=== PATIENT | male | born 1975 | race Caucasian/White ===

== ENCOUNTER → 2018-02-13 | Outpatient (CLI) | payer MEDICAID ==
[~2018-02-13] VITALS: Ht 172.7 cm; Wt 122.5 kg
[~2018-02-13] MED LIST: ALLO100T MT; CARV25TA47 MT; FURO40TA5 MT; POTA-79 MT; SACU1TAB4 MT; SIMV20TA6 MT; SPIR25TA6 MT
[2018-02-13 14:17] LABS: HEMOGLOBIN 15.6 g/dL (14.0-18.0); MEAN CORPUSCULAR HEMOGLOBIN 29.7 pg (28.0-32.0); MEAN CORPUSCULAR VOLUME 83.9 fL (80.0-94.0); PLATELET 252 x1000/uL (130-400); RED BLOOD CELL COUNT 5.25 mill/uL (4.7-6.1); RED CELL DISTRIBUTION WIDTH 13.4 % (11.6-14.6)
[2018-02-13 14:34] LABS: CHLORIDE 102 mEq/L (98-107)
== END | disposition home or self-care (01) ==
LOC: CCL 11:15
PROVIDERS: ATTEND Internal Medicine Clinical Cardiac Electrophysiology
DX: I44.7 Left bundle-branch block, unspecified (principal); I42.0 Dilated cardiomyopathy; I50.22 Chronic systolic (congestive) heart failure
CPT/HCPCS: 36415; 80048; 85027; 93005